=== PATIENT | male | born 1995 | race Caucasian/White ===

== ENCOUNTER 2021-09-13 00:33 | Emergency (ER) | payer OTHER ==
[~2021-09-13] VITALS: Ht 172.7 cm; Wt 71.0 kg
[2021-09-13] MEDS ORDERED: IBUPROFEN 600MG TABLET PO ONE (01:30)
[2021-09-13 01:31] VITALS: BP 129/80
[2021-09-13] MEDS ORDERED: NAPR-681 MT (02:35)
== END 2021-09-13 02:45 | disposition home or self-care (01) ==
LOC: ER 00:33
DX: S62.395A Other fracture of fourth metacarpal bone, left hand, initial encounter for closed fracture (principal); W01.0XXA Fall on same level from slipping, tripping and stumbling without subsequent striking against object, initial encounter; Y93.01 Activity, walking, marching and hiking; Y92.9 Unspecified place or not applicable; Z91.018 Allergy to other foods
CPT/HCPCS: 29125; 73130; 99283